=== PATIENT | male | born 1995 | race African-American/Black ===

== ENCOUNTER 2023-11-11 10:05 | Emergency (ER) | payer OTHER ==
[2023-11-11 10:14] VITALS: BP 119/75; PULSE 82; RESP 16; TEMP 97.1; BMI 33.0
[2023-11-11] MEDS ORDERED: LIDOCAINE 5% TOPICAL PATCH ONE (12:21)
[2023-11-11] MEDS: LIDOCAINE 5% TOPICAL PATCH TP ONE (12:23)
[2023-11-11] MEDS ORDERED: LIDOCAINE PATCH REMOVAL MC ONE (22:00)
== END 2023-11-11 14:01 | disposition home or self-care (01) ==
LOC: FER 10:05
DX: M54.9 Dorsalgia, unspecified (principal); W01.0XXA Fall on same level from slipping, tripping and stumbling without subsequent striking against object, initial encounter; Y92.009 Unspecified place in unspecified non-institutional (private) residence as the place of occurrence of the external cause
CPT/HCPCS: 72100-TC-FY; 99283-25